=== PATIENT | female | born 1990 ===

== ENCOUNTER 2020-08-30 09:27 | Inpatient (IN) | payer OTHER ==
[2020-08-30] MEDS ORDERED: Sodium Chloride 0.9% 10 ML SDV IV PRN (10:02)
[2020-08-30] MEDS ORDERED: Sodium Chloride 0.9% 10 ML Syringe FLUSH PRN (10:02)
[2020-08-30] MEDS ORDERED: Sodium Chloride 0.9% 2.5 ML Syringe FLUSH PRN (10:02)
[2020-08-30] MEDS ORDERED: Citric Acid/Sodium Citrate Solution 30 ML Cup PO ONE ×2 (10:02→13:45)
[2020-08-30] MEDS ORDERED: Oxytocin/0.9 % Sodium Chloride 30 UNIT/500 ML BAG IV SCH (10:15)
[2020-08-30] MEDS ORDERED: Oxytocin 10 Units/1 ML SDV ONE (10:59)
[2020-08-30] MEDS ORDERED: Ondansetron 4 MG/2 ML SDV ONE (10:59)
[2020-08-30] MEDS ORDERED: ceFAZolin 1 GM Vial ONE (10:59)
[2020-08-30] MEDS ORDERED: Sodium Chloride 0.9% 20 ML ONE (10:59)
[2020-08-30] MEDS ORDERED: Ketorolac 30 MG/ML SDV ONE (10:59)
[2020-08-30] MEDS: Lactated Ringers 1,000 ML IV SCH ×2 (11:00→13:32)
[2020-08-30] MEDS ORDERED: fentaNYL 100 MCG/2 ML SDV ONE (11:05)
[2020-08-30] MEDS ORDERED: Morphine PF 10 MG/10 ML SDV ONE (11:05)
[2020-08-30] MEDS ORDERED: Citric Acid/Sodium Citrate Solution 30 ML Cup ONE (13:36)
[2020-08-30] MEDS: Ketorolac 30 MG/ML SDV IVPUSH SCH ×2 (14:30→21:20)
[2020-08-30] MEDS ORDERED: Bisacodyl 10 MG Supp RECTAL PRN (15:06)
[2020-08-30] MEDS ORDERED: Ondansetron 4 MG/2 ML SDV IVPUSH PRN (15:06)
[2020-08-30] MEDS ORDERED: diphenhydrAMINE 50 MG/ML SDV IVPUSH PRN (15:06)
[2020-08-30] MEDS ORDERED: Ibuprofen 800 MG Tab PO PRN (15:06)
[2020-08-30] MEDS ORDERED: Lanolin 100% Cream 7 GM Tube TOP PRN (15:06)
[2020-08-30] MEDS ORDERED: Acetaminophen/oxyCODONE 325-5 MG Tab PO PRN ×2 (15:06)
--- NOTE | 2020-08-30 15:14 | PCM.OPNOTE ---
- General Post-Op/Procedure Note Date of Surgery/Procedure: 08/30/20 Operative Procedure(s): Repeat low-transverse section. Pfannenstiel scar revision Findings: Live male infant, Apgars 8/9, weight 3750g, umbilical cord gases pending Placenta intact & with 3-vessel cord Thin lower uterine segment, otherwise normal uterus Pre Op Diagnosis: 30yo @ 39w1d. History of x3 Post-Op Diagnosis: 30yo @ 39w1d. History of x3 Anesthesia Technique: Spinal Primary Surgeon: Marcy Morrissey Internal Affairs Commander: Jennifer Javier Pathology: Umbilical cord gases and blood Placenta disposed Fluid Replacement, Intraop: 1,500 Output, Urine Amount: 50 EBL in mLs: 400 Complications: None Condition: Good Free Text/Narrative:: 2g Ancef IV prophylaxis
[2020-08-30] MEDS ORDERED: Lactated Ringers 1,000 ML IV SCH (15:15)
[2020-08-30] MEDS ORDERED: Oxytocin/Lactated Ringers 30 UNIT/500 ML BAG IV SCH (15:15)
[2020-08-30] MEDS: Docusate Sodium 100 MG Cap PO SCH (21:19)
[2020-08-31] MEDS: Ketorolac 30 MG/ML SDV IVPUSH SCH ×3 (04:14→17:07)
--- NOTE | 2020-08-31 06:52 | PCM48HPAN ---
Post Anesthesia Note - EVALUATION WITHIN 48HRS OF ANESTHETIC Vital Signs in Normal Range: Yes Patient Participated in Evaluation: Yes Respiratory Function Stable: Yes Airway Patent: Yes Cardiovascular Function Stable: Yes Hydration Status Stable: Yes Pain Control Satisfactory: Yes Nausea and Vomiting Control Satisfactory: Yes Mental Status Recovered: Yes Vital Signs: Last Vital Signs Temp 96.8 F L 08/30/20 19:00 Pulse 67 08/30/20 19:00 Resp 18 08/30/20 19:10 BP 125/68 08/30/20 19:00 Pulse Ox 97 08/30/20 19:10
--- NOTE | 2020-08-31 07:27 | OR ---
SURGEON: Marcy Morrissey MD DATE OF PROCEDURE: 08/30/2020 PREOPERATIVE DIAGNOSES: 1. A 30-year-old, G5, P 3-0-1-3 at 39 weeks and 1 day gestation. 2. History of delivery x3. POSTOPERATIVE DIAGNOSES: 1. A 30-year-old, G5, P 4-0-1-4 at 39 weeks and 1 day gestation. 2. History of delivery x3. PROCEDURE: Repeat low transverse section and revision of the Pfannenstiel scar. PRIMARY SURGEON: Marcy Morrissey MD ANESTHESIA: Spinal. TOY DEPARTMENT MANAGER: Jennifer Javier M.D. ANTIBIOTIC PROPHYLAXIS: 2 g of Ancef IV. IV FLUIDS: 1500 mL LR. URINE OUTPUT: 50 mL clear yellow urine. ESTIMATED BLOOD LOSS: 400 mL. FINDINGS: Live male in cephalic presentation. score of 8 and 9 at one and five minutes respectively. Weight 3750 g. Umbilical cord gases pending. Placenta intact with 3-vessel cord. Thin lower uterine segment. Otherwise normal-appearing uterus. INDICATIONS: This is a 30-year-old, G5, P 3-0-1-3 who presented at 39 weeks and 1 day gestation for scheduled repeat delivery. She had a history of delivery x3. Prior to surgery, the risks and benefits of the procedure were reviewed with the patient. DESCRIPTION OF PROCEDURE: The patient was taken to the operating room where spinal anesthesia was obtained without difficulty. She was placed in the dorsal supine position with a leftward tilt. She was prepared and draped in a normal sterile fashion. The prior Pfannenstiel scar was excised with a scalpel and incision was extended through the fascia scalpel. The fascia was incised in the midline and the incision extended laterally with curved Altamirano scissors. The superior aspect of the fascial incision was grasped with a Raiza clamp, elevated, underlying the muscles with the curved Altamirano scissors. In a similar fashion, the inferior aspect of the fascia was grasped with Raiza clamps, elevated, and dissected off bluntly and with curved Altamirano scissors. During fascial defect dissection, the peritoneum was entered in the midline. This incision was extended superiorly and inferiorly with the bovie, ensuring no bladder or bowel was involved. A bladder flap was created in the usual fashion. A low uterine hysterotomy was created the scalpel. The hysterotomy was extended using manual traction. The infant's head was atraumatically followed by shoulders and remainder of the body. After approximately 30 seconds, the infant was handed off to the awaiting nurse and bowling ball patcher. Umbilical cord gases and blood were obtained. The placenta was delivered using massage and gentle traction on the cord. The uterus was cleared of clots and debris. The hysterotomy was repaired with a running lock stitch of 0 Vicryl suture. A 2nd stitch of same suture was used to obtain hemostasis. The hysterotomy was inspected and noted to be hemostatic. The rectus muscle was approximated with 3-0 Vicryl suture. The fascia was closed with 2 running stitches of 0 Vicryl suture meeting in the midline. The subcutaneous was closed with 3-0 Vicryl in a running fashion. The skin was closed with 4-0 Monocryl in subcuticular fashion. All sponge, lap, needle counts were correct x3. The patient and tolerated the delivery well. [id number] / MODL /[id number] MTDD
[2020-08-31] MEDS: Sertraline 25 MG Tab PO SCH (09:00)
--- NOTE | 2020-08-31 09:09 | PCM.PNPP ---
- General Info Date of Service: 08/31/20 Subjective Update: Patient states she is tired from baby feeding most of the night, but is otherwise doing well. Has ambulated in room without dizziness. Voiding spontaneously. Pain controlled. Minimal lochia. Functional Status: Reports: Pain Controlled, Tolerating Diet, Ambulating, Urinating - Review of Systems General: Reports: No Symptoms HEENT: Reports: No Symptoms Pulmonary: Reports: No Symptoms Cardiovascular: Reports: No Symptoms Gastrointestinal: Reports: No Symptoms Genitourinary: Reports: No Symptoms Musculoskeletal: Reports: No Symptoms Skin: Reports: No Symptoms Neurological: Reports: No Symptoms Psychiatric: Reports: No Symptoms - Patient Data Vital Signs - Most Recent: Last Vital Signs Temp 36.5 C 08/31/20 08:32 Pulse 77 08/31/20 08:32 Resp 18 08/31/20 08:32 BP 119/64 08/31/20 08:32 Pulse Ox 97 08/31/20 08:32 Weight - Most Recent: 121.563 kg I&O - Last 24 Hours: Intake & Output 08/30/20 08/31/20 08/31/20 22:59 06:59 14:59 Intake Total 1500 1600 Output Total 16 175 Balance 134@ -15 Lab Results - Last 24 Hours: Laboratory Results - last 24 hr 08/30/20 08/30/20 08/30/20 Range/Units 10:10 10:30 10:30 WBC 8.60 (4.0-11.0) K/uL RBC 4.13 L (4.30-5.90) M/uL Hgb 11.1 L (12.0-16.0) g/dL Hct 34.9 L (36.0-46.0) % MCV 84.5 (80.0-98.0) fL MCH 26.9 L (27.0-32.0) pg MCHC 31.8 (31.0-37.0) g/dL RDW Std Deviation 48.1 (28.0-62.0) fl RDW Coeff of Carol 16 H (11.0-15.0) % Plt Count 204 (150-400) K/uL MPV 12.20 H (7.40-12.00) fL Nucleated RBC % 0.0 /100WBC Nucleated RBCs # 0 K/uL Cord ABG pH (7.18-7.38) Cord ABG Base Excess (-10--2) Cord VBG pH (7.25-7.45) Cord VBG Base Excess (-10--2) SARS-CoV-2 RNA (ANDRA) NEGATIVE (NEGATIVE) Blood Type A POSITIVE Antibody Screen NEGATIVE 08/30/20 08/31/20 Range/Units 14:26 05:15 WBC (4.0-11.0) K/uL RBC (4.30-5.90) M/uL Hgb 9.9 L (12.0-16.0) g/dL Hct 31.1 L (36.0-46.0) % MCV (80.0-98.0) fL MCH (27.0-32.0) pg MCHC (31.0-37.0) g/dL RDW Std Deviation (28.0-62.0) fl RDW Coeff of Carol (11.0-15.0) % Plt Count (150-400) K/uL MPV (7.40-12.00) fL Nucleated RBC % /100WBC Nucleated RBCs # K/uL Cord ABG pH 7.298 (7.18-7.38) Cord ABG Base Excess -7 (-10--2) Cord VBG pH 7.318 (7.25-7.45) Cord VBG Base Excess -1.1 H (-10--2) SARS-CoV-2 RNA (ANDRA) (NEGATIVE) Blood Type Antibody Screen Med Orders - Current: Current Medications Bisacodyl (Bisacodyl 10 Mg Supp) 10 mg RECTAL ONETIME PRN PRN Reason: Constipation Diphenhydramine HCl (Diphenhydramine 50 Mg/Ml Sdv) 25 mg IVPUSH Q6H PRN PRN Reason: Itching or Nausea Docusate Sodium (Docusate Sodium 100 Mg Cap) 100 mg PO BID [facility] Last Admin: 08/30/20 21:19 Dose: 100 mg Documented by: Emollient Ointment (Lanolin 100% Cream 7 Gm Tube) 0 gm TOP ASDIRECTED PRN PRN Reason: Sore Nipples Oxytocin/Sodium Chloride (Oxytocin 30 Unit/500 Ml-Ns) 30 unit in 500 mls @ 250 mls/hr IV TITRATE [facility] Lactated Ringer's (Ringers, Lactated) 1,000 mls @ 500 mls/hr IV BOLUS [facility] Last Admin: 08/30/20 13:32 Dose: 500 mls/hr Documented by: Lactated Ringer's (Ringers, Lactated) 1,000 mls @ 125 mls/hr IV ASDIRECTED [facility] Last Admin: 08/30/20 20:17 Dose: 125 mls/hr Documented by: Oxytocin/Lactated Ringer's (Pitocin In Lr 30 Units/500 Ml) 30 unit in 500 mls @ 999 mls/hr IV TITRATE [facility]; Protocol Ibuprofen (Ibuprofen 800 Mg Tab) 800 mg PO Q8H PRN PRN Reason: mild pain or fever Ketorolac Tromethamine (Ketorolac 30 Mg/Ml Sdv) 30 mg IVPUSH Q6H SILVINA Stop: 08/31/20 15:16 Last Admin: 08/31/20 04:14 Dose: 30 mg Documented by: Ondansetron HCl (Ondansetron 4 Mg/2 Ml Sdv) 4 mg IVPUSH Q4H PRN PRN Reason: Nausea/Vomiting Oxycodone/Acetaminophen (Acetaminophen/Oxycodone 325-5 Mg Tab) 1 tab PO Q4H PRN PRN Reason: Pain (severe 7-10) Oxycodone/Acetaminophen (Acetaminophen/Oxycodone 325-5 Mg Tab) 2 tab PO Q4H PRN PRN Reason: Pain (severe 7-10) Sertraline HCl (Sertraline 25 Mg Tab) 25 mg PO DAILY [facility] Sodium Chloride (Sodium Chloride 0.9% 10 Ml Syringe) 10 ml FLUSH ASDIRECTED PRN PRN Reason: Keep Vein Open Sodium Chloride (Sodium Chloride 0.9% 2.5 Ml Syringe) 2.5 ml FLUSH ASDIRECTED PRN PRN Reason: Keep Vein Open Sodium Chloride (Sodium Chloride 0.9% 10 Ml Sdv) 10 ml IV ASDIRECTED PRN PRN Reason: IV Use Discontinued Medications Cefazolin Sodium (Cefazolin 1 Gm Vial) Confirm Administered Dose 2 gm .ROUTE .STK-MED ONE Stop: 08/30/20 11:00 Citric Acid/Sodium Citrate (Citric Acid/Sodium Citrate Solution 30 Ml Cup) 30 ml PO ONETIME ONE Stop: 08/30/20 10:03 Last Admin: 08/30/20 13:43 Dose: 30 ml Documented by: Citric Acid/Sodium Citrate (Citric Acid/Sodium Citrate Solution 30 Ml Cup) Conf irm Administered Dose 30 ml .ROUTE .STK-MED ONE Stop: 08/30/20 13:37 Citric Acid/Sodium Citrate (Citric Acid/Sodium Citrate Solution 30 Ml Cup) 30 ml PO ONETIME ONE Stop: 08/30/20 13:46 Fentanyl (Fentanyl 100 Mcg/2 Ml Sdv) Confirm Administered Dose 100 mcg .ROUTE .STK-MED ONE Stop: 08/30/20 11:06 Sodium Chloride (Normal Saline) Confirm Administered Dose 20 mls @ as directed .ROUTE .STK-MED ONE Stop: 08/30/20 11:00 Ketorolac Tromethamine (Ketorolac 30 Mg/Ml Sdv) Confirm Administered Dose 30 mg .ROUTE .STK-MED ONE Stop: 08/30/20 11:00 Morphine Sulfate (Morphine Pf 10 Mg/10 Ml Sdv) Confirm Administered Dose 10 mg .ROUTE .STK-MED ONE Stop: 08/30/20 11:06 Ondansetron HCl (Ondansetron 4 Mg/2 Ml Sdv) Confirm Administered Dose 4 mg .ROUTE .STK-MED ONE Stop: 08/30/20 11:00 Oxytocin (Oxytocin 10 Units/1 Ml Sdv) Confirm Administered Dose 30 unit .ROUTE .STK-MED ONE Stop: 08/30/20 11:00 - Infant Interaction Infant Disposition, : in Room with Family Feeding: Breastfed ; Nursed Well Support Person: Significant Other - Recovery Exam Fundal Tone: Firm Fundal Level: At Umbilicus Fundal Placement: Midline Lochia Amount: Scant Lochia Color: Rubra/Red Perineum Description: Intact, Minimal Bruising/Swelling Bladder Status: Voiding Urinary Elimination: Voided - Exam General: Alert, Oriented Neck: Supple Lungs: Normal Respiratory Effort GI/Abdominal Exam: Soft, Non-Tender, No Distention Extremities: Non-Tender, No Pedal Edema Skin: Warm, Dry, Intact Wound/Incisions: Dressing Dry and Intact Neurological: No New Focal Deficit Psy/Mental Status: Alert, Normal Affect, Normal Mood - Problem List & Annotations (1) S/P repeat low transverse SNOMED Code(s): 732781916, 21035483, 659759883, 209869233, 258222996 Code(s): Z98.891 - HISTORY OF UTERINE SCAR FROM PREVIOUS SURGERY Status: Acute Current Visit: Yes - Problem List Review Problem List Initiated/Reviewed/Updated: Yes - My Orders Last 24 Hours: My Active Orders 08/30/20 10:02 Patient Status [ADT] Routine Notify Provider Vital Signs [RC] PRN Procedure Site Prep Instruct [RC] ASDIRECTED Up ad Unique [RC] ASDIRECTED Verify Patient Consent Obtain [RC] ASDIRECTED Vital Signs [RC] PER UNIT ROUTINE Sodium Chloride 0.9% [Normal Saline] 10 ml IV ASDIRECTED PRN Sodium Chloride 0.9% [Saline Flush] 10 ml FLUSH ASDIRECTED PRN Sodium Chloride 0.9% [Saline Flush] 2.5 ml FLUSH ASDIRECTED PRN Peripheral IV Insertion Adult [OM.PC] Routine Schedule Procedure [COMM] Per Unit Routine Resuscitation Status Routine 08/30/20 10:15 Lactated Ringers [Ringers, Lactated] 1,000 ml IV BOLUS Oxytocin/0.9 % Sodium Chloride [Oxytocin 30 Unit/500 ML-NS] 30 unit in 500 ml IV TITRATE 08/30/20 10:30 RPR (SYPHILIS SERO) W/ RFLX [REF] Routine 08/30/20 15:06 Patient Status [ADT] Routine Ambulate [RC] PER UNIT ROUTINE Communication Order [RC] PER UNIT ROUTINE Communication Order [RC] Per Unit Routine Intake and Output [RC] Q8H May Shower [RC] ASDIRECTED Notify Provider Intake and Out [RC] ASDIRECTED Notify Provider Vital Signs [RC] ASDIRECTED RT Incentive Spirometry [RC] Q2HWA Urinary Catheter Removal [RC] PER UNIT ROUTINE Vital Signs [RC] Q1H Acetaminophen/oxyCODONE [Percocet 325-5 MG] 1 tab PO Q4H PRN Acetaminophen/oxyCODONE [Percocet 325-5 MG] 2 tab PO Q4H PRN Ibuprofen [Motrin] 800 mg PO Q8H PRN Lanolin [Lansinoh HPA] See Dose Instructions TOP ASDIRECTED PRN Ondansetron [Zofran] 4 mg IVPUSH Q4H PRN bisacodyL [Dulcolax] 10 mg RECTAL ONETIME PRN diphenhydrAMINE [Benadryl] 25 mg IVPUSH Q6H PRN Abdominal Binder [OM.PC] Routine Assess Lochia [WOMSER] Per Unit Routine Assess Uterine Involution [WOMSER] Per Unit Routine Breast Pump [WOMSER] Per Unit Routine Heat Therapy [OM.PC] Routine Ice Therapy [OM.PC] Routine Sequential Compression Device [OM.PC] Per Unit Routine 08/30/20 15:07 Antiembolic Devices [RC] PER UNIT ROUTINE Communication Order [RC] PER UNIT ROUTINE Peripheral IV Discontinue [OM.PC] Routine 08/30/20 15:08 Cooling Warming Measures [RC] ASDIRECTED 08/30/20 15:15 Ketorolac [Toradol] 30 mg IVPUSH Q6H Lactated Ringers [Ringers, Lactated] 1,000 ml IV ASDIRECTED Oxytocin/Lactated Ringers [Pitocin in LR 30 Units/500 ML] 30 unit in 500 ml IV TITRATE 08/30/20 Dinner Regular Diet [DIET] 08/30/20 21:00 Docusate Sodium [Colace] 100 mg PO BID 08/31/20 09:00 Sertraline [Zoloft] 25 mg PO DAILY - Assessment Assessment:: 30yo s/p repeat #4 at 39w1d, POD#1 - Plan Plan:: Continue routine care today. Encourage ambulation. Rh positive. Plan to discharge home tomorrow.
[2020-08-31] MEDS: Docusate Sodium 100 MG Cap PO SCH ×2 (09:25→22:28)
--- NOTE | 2020-09-01 07:13 | PCM.PNPP ---
- General Info Date of Service: 09/01/20 Subjective Update: Patient doing well this morning. Continuing to work on [place]. Minimal bleeding. Pain controlled with oral pain medications. Tolerating oral intake without nausea. Ambulating without dizziness. Functional Status: Reports: Pain Controlled, Tolerating Diet, Ambulating, Urinating - Review of Systems General: Reports: No Symptoms HEENT: Reports: No Symptoms Pulmonary: Reports: No Symptoms Cardiovascular: Reports: No Symptoms Gastrointestinal: Reports: No Symptoms Genitourinary: Reports: No Symptoms Musculoskeletal: Reports: No Symptoms Skin: Reports: No Symptoms Neurological: Reports: No Symptoms Psychiatric: Reports: No Symptoms - General Info Date of Service: 09/01/20 - Patient Data Vital Signs - Most Recent: Last Vital Signs Temp 36.1 C 08/31/20 19:32 Pulse 71 08/31/20 19:32 Resp 18 08/31/20 19:32 BP 129/69 08/31/20 19:32 Pulse Ox 94 L 08/31/20 19:32 Weight - Most Recent: 121.563 kg I&O - Last 24 Hours: Intake & Output 08/31/20 09/01/20 09/01/20 22:59 06:59 14:59 Intake Total 1000 Balance 1000 Med Orders - Current: Current Medications Bisacodyl (Bisacodyl 10 Mg Supp) 10 mg RECTAL ONETIME PRN PRN Reason: Constipation Diphenhydramine HCl (Diphenhydramine 50 Mg/Ml Sdv) 25 mg IVPUSH Q6H PRN PRN Reason: Itching or Nausea Docusate Sodium (Docusate Sodium 100 Mg Cap) 100 mg PO BID [facility] Last Admin: 08/31/20 22:28 Dose: 100 mg Documented by: Emollient Ointment (Lanolin 100% Cream 7 Gm Tube) 0 gm TOP ASDIRECTED PRN PRN Reason: Sore Nipples Oxytocin/Sodium Chloride (Oxytocin 30 Unit/500 Ml-Ns) 30 unit in 500 mls @ 250 mls/hr IV TITRATE [facility] Lactated Ringer's (Ringers, Lactated) 1,000 mls @ 500 mls/hr IV BOLUS [facility] Last Admin: 08/30/20 13:32 Dose: 500 mls/hr Documented by: Lactated Ringer's (Ringers, Lactated) 1,000 mls @ 125 mls/hr IV ASDIRECTED [facility] Last Admin: 08/30/20 20:17 Dose: 125 mls/hr Documented by: Oxytocin/Lactated Ringer's (Pitocin In Lr 30 Units/500 Ml) 30 unit in 500 mls @ 999 mls/hr IV TITRATE [facility]; Protocol Ibuprofen (Ibuprofen 800 Mg Tab) 800 mg PO Q8H PRN PRN Reason: mild pain or fever Ondansetron HCl (Ondansetron 4 Mg/2 Ml Sdv) 4 mg IVPUSH Q4H PRN PRN Reason: Nausea/Vomiting Oxycodone/Acetaminophen (Acetaminophen/Oxycodone 325-5 Mg Tab) 1 tab PO Q4H PRN PRN Reason: Pain (severe 7-10) Oxycodone/Acetaminophen (Acetaminophen/Oxycodone 325-5 Mg Tab) 2 tab PO Q4H PRN PRN Reason: Pain (severe 7-10) Last Admin: 08/31/20 22:28 Dose: 2 tab Documented by: Sertraline HCl (Sertraline 25 Mg Tab) 25 mg PO DAILY [facility] Last Admin: 08/31/20 09:00 Dose: 25 mg Documented by: Sodium Chloride (Sodium Chloride 0.9% 10 Ml Syringe) 10 ml FLUSH ASDIRECTED PRN PRN Reason: Keep Vein Open Sodium Chloride (Sodium Chloride 0.9% 2.5 Ml Syringe) 2.5 ml FLUSH ASDIRECTED PRN PRN Reason: Keep Vein Open Sodium Chloride (Sodium Chloride 0.9% 10 Ml Sdv) 10 ml IV ASDIRECTED PRN PRN Reason: IV Use Discontinued Medications Cefazolin Sodium (Cefazolin 1 Gm Vial) Confirm Administered Dose 2 gm .ROUTE .STK-MED ONE Stop: 08/30/20 11:00 Citric Acid/Sodium Citrate (Citric Acid/Sodium Citrate Solution 30 Ml Cup) 30 ml PO ONETIME ONE Stop: 08/30/20 10:03 Last Admin: 08/30/20 13:43 Dose: 30 ml Documented by: Citric Acid/Sodium Citrate (Citric Acid/Sodium Citrate Solution 30 Ml Cup) Confirm Administered Dose 30 ml .ROUTE .STK-MED ONE Stop: 08/30/20 13:37 Citric Acid/Sodium Citrate (Citric Acid/Sodium Citrate Solution 30 Ml Cup) 30 ml PO ONETIME ONE Stop: 08/30/20 13:46 Fentanyl (Fentanyl 100 Mcg/2 Ml Sdv) Confirm Administered Dose 100 mcg .ROUTE .STK-MED ONE Stop: 08/30/20 11:06 Sodium Chloride (Normal Saline) Confirm Administered Dose 20 mls @ as directed .ROUTE .STK-MED ONE Stop: 08/30/20 11:00 Ketorolac Tromethamine (Ketorolac 30 Mg/Ml Sdv) Confirm Administered Dose 30 mg .ROUTE .STK-MED ONE Stop: 08/30/20 11:00 Ketorolac Tromethamine (Ketorolac 30 Mg/Ml Sdv) 30 mg IVPUSH Q6H SILVINA Stop: 08/31/20 15:16 Last Admin: 08/31/20 17:07 Dose: 30 mg Documented by: Morphine Sulfate (Morphine Pf 10 Mg/10 Ml Sdv) Confirm Administered Dose 10 mg .ROUTE .STK-MED ONE Stop: 08/30/20 11:06 Ondansetron HCl (Ondansetron 4 Mg/2 Ml Sdv) Confirm Administered Dose 4 mg .ROUTE .STK-MED ONE Stop: 08/30/20 11:00 Oxytocin (Oxytocin 10 Units/1 Ml Sdv) Confirm Administered Dose 30 unit .ROUTE .STK-MED ONE Stop: 08/30/20 11:00 - Interaction Disposition, : [place] in Room with Family Infant Feeding: Bottle Fed Infant, Breastfed Infant; Nursed Well Support Person: Significant Other - Recovery Exam Fundal Tone: Firm Fundal Level: At Umbilicus Fundal Placement: Midline Lochia Amount: Scant Lochia Color: Rubra/Red Bladder Status: Voiding Urinary Elimination: Voided - Exam General: Alert, Oriented Neck: Supple Lungs: Normal Respiratory Effort GI/Abdominal Exam: Soft, Non-Tender, No Distention Extremities: Non-Tender, Pedal Edema (1+) Skin: Warm, Dry, Intact Wound/Incisions: Healing Well Neurological: No New Focal Deficit Psy/Mental Status: Alert, Normal Affect, Normal Mood - Problem List & Annotations (1) S/P repeat low transverse SNOMED Code(s): 714789175, 90520629, 684866966, 968075719, 822930067 Code(s): Z98.891 - HISTORY OF UTERINE SCAR FROM PREVIOUS SURGERY Status: Acute Current Visit: Yes - Problem List Review Problem List Initiated/Reviewed/Updated: Yes - My Orders Last 24 Hours: My Active Orders 08/31/20 09:00 Sertraline [Zoloft] 25 mg PO DAILY 09/01/20 07:11 Ready for Discharge [RC] PER UNIT ROUTINE - Assessment Assessment:: 30yo s/p repeat #4 at 39w1d, POD#2 - Plan Plan:: Rh positive. Baby currently under bilirubin blanket, repeat level pending. Patient desires discharge home today if baby cleared by Ophthalmic Technician. Reviewed discharge instructions/precautions. All questions answered.
[2020-09-01] MEDS: Docusate Sodium 100 MG Cap PO SCH (09:19)
[2020-09-01] MEDS: Sertraline 25 MG Tab PO SCH (09:20)
== END 2020-09-01 15:50 | disposition home or self-care (01) | DRG 788 ==
LOC: MW.OB 09:27 → MW.OBCHECK 09:27 → MW.OB 10:02 → OBSVTOIN 10:02 → MW.OB 19:00
PROVIDERS: ADMIT Obstetrics & Gynecology; ATTEND Obstetrics & Gynecology
PROC: 10D00Z1 Extraction of Products of Conception, Low, Open Approach (ICD-10-PCS; principal; 2020-08-30)
DX: O34.211 Maternal care for low transverse scar from previous cesarean delivery (principal); Z20.822 Contact with and (suspected) exposure to COVID-19; Z37.0 Single live birth; Z3A.39 39 weeks gestation of pregnancy
CPT/HCPCS: 36415; 59025; 82803; 85014; 85018; 85027; 86592; 86850; 86900; 86901; A9270-GY; J0690; J1885; J2270; J2405; J2590; J3010; J7120; U0002